=== PATIENT | male | born 1965 | race Two or more races ===

== ENCOUNTER 2023-09-02 21:20 | Emergency (ER) | payer MEDICAID, OTHER ==
[~2023-09-02] VITALS: Ht 177.8 cm; Wt 113.0 kg
[2023-09-02 21:33] VITALS: BP 136/86; PULSE 98; RESP 20; O2SAT 93
[2023-09-02 22:57] LABS: Basophils # (auto) 0 10 ^3/uL (0-0.2); Basophils % (auto) 0.3 % (0.0-2.0); Eosinophils # (auto) 0.3 10 ^3/uL (0-0.8); Eosinophils % (auto) 2.3 % (0.0-7.0); Hematocrit 48.6 % (41.0-53.0); Hemoglobin 16.4 g/dL (13.5-17.5); Lymphocytes # (auto) 2.2 10 ^3/uL (0.4-5.4); Lymphocytes % (auto) 16.7 % (10.0-50.0); Mean Corpuscular Hemoglobin 29.5 pg (28.0-32.0); Mean Corpuscular Hgb Conc. 33.7 g/dL (32.0-36.0); Mean Corpuscular Volume 87.5 fL (80.0-100.0); Monocytes # (auto) 1.1 10 ^3/uL (0-1.3); Monocytes % (auto) 8.4 % (0.0-12.0); Neutrophils # (auto) 9.4 10 ^3/uL (1.6-8.6); Neutrophils % (auto) 72.3 % (37.0-80.0); Nucleated Red Blood Cells % 0.1 %; Red Blood Cells 5.55 10^6/uL (4.5-5.90)
[2023-09-03 00:10] LABS: Chloride 105 mmol/L (98-107); Potassium 4.1 mmol/L (3.5-5.1); Sodium 139 mmol/L (136-145)
[2023-09-03 00:11] LABS: Anion Gap 5 (5-15); Carbon Dioxide 29 mmol/L (20-30)
[2023-09-03 00:12] LABS: Calcium 9.9 mg/dL (8.7-10.4)
[2023-09-03 00:16] LABS: BUN/Creatinine Ratio 8.2 (10.0-20.0); Blood Urea Nitrogen 8 mg/dL (9-23); Glucose 161 mg/dL (74-106)
[2023-09-03 00:57] LABS: Urine Bacteria NONE SEEN /hpf (None Seen); Urine Blood 2+ /uL (Negative); Urine Clarity CLOUDY (Clear); Urine Color Colorless (Yellow); Urine Protein, UAD 1+ (Negative); Urine Specific Gravity 1.016 (1.001-1.035); Urine Urobilinogen Normal (Negative); Urine WBC 903 /hpf (0 - 3); Urine WBC Clumps PRESENT /hpf (None Seen)
[2023-09-03] MEDS ORDERED: IBUP-1456 PO (01:30)
[2023-09-03] MEDS ORDERED: BACDST PO (01:30)
== END 2023-09-03 02:47 | disposition home or self-care (01) ==
LOC: ER 21:20
DX: N20.0 Calculus of kidney (principal); N39.0 Urinary tract infection, site not specified; I10 Essential (primary) hypertension; E11.9 Type 2 diabetes mellitus without complications
CPT/HCPCS: 36415; 74176; 80048; 81001; 85025

== ENCOUNTER 2023-09-14 10:43 | Emergency (ER) | payer MEDICAID ==
[~2023-09-14] VITALS: Ht 177.8 cm; Wt 112.0 kg
[~2023-09-14 10:43] MED LIST: BACDST PO; IBUP-1456 PO
[2023-09-14 12:56] VITALS: BP 140/79; PULSE 71; RESP 19; TEMP 97.9; O2SAT 97
== END 2023-09-14 12:58 | disposition home or self-care (01) ==
LOC: ER 10:43
DX: T83.011A Breakdown (mechanical) of indwelling urethral catheter, initial encounter (principal); I10 Essential (primary) hypertension; E11.9 Type 2 diabetes mellitus without complications; Z88.8 Allergy status to other drugs, medicaments and biological substances; Y92.89 Other specified places as the place of occurrence of the external cause
CPT/HCPCS: 51701